=== PATIENT | female | born 1985 | race Two or more races ===

== ENCOUNTER 2024-09-13 11:26 | Emergency (ER) | payer MEDICAID, SELFPAY ==
[2024-09-13 11:44] VITALS: BP 105/72; PULSE 91; RESP 20; TEMP 37.1; O2SAT 99; BMI 30.6
--- NOTE | 2024-09-13 11:51 | EDNOTE_ITS ---
<Statement entered by Serina Rashid MD - 09/14/24 09:17> As co-signing physician, I was present and available for consult prn. I concur with the plan and care as documented by the midlevel provider. ED Dental RME/HPI General Chief complaint: Dental/Oral/Throat Stated complaint: JAW PAIN/UNABLE TO OPEN MOUTH SINCE YESTERDAY Time Seen by Provider: 09/13/24 11:30 Arrival date/time: 09/13/24 11:26 RME / HPI RME / HPI Narrative: 38-year-old female patient came in for evaluation regarding left face swelling. Patient noticed it yesterday, associated with gumline swelling on the left lower premolar, she had a crown there placed. She called her dentist however her first appointment will be on the . Patient denies any fever but complained of painful opening the mouth. Denies any difficulty swallowing. Related Data Home Medications ?Medication ?Instructions ?Recorded ?Confirmed levothyroxine 125 mcg tablet 125 mcg PO QDAY 05/20/22 05/20/22 Allergies Allergy/AdvReac Type Severity Reaction Status Date / Time No Known Allergies Allergy Verified 09/13/24 11:28 Review of Systems Review of Systems Narrative Review of Systems: Review of system reviewed and within normal limits except mentioned in HPI ED Exam Narrative Physical exam: VITAL SIGNS: Reviewed. GENERAL APPEARANCE: Alert and interactive, follows commands, no acute distress, HEAD AND FACE: Non-traumatic. Swelling noted on the left lower jaw ENT: PERRL, pink conjunctivitis, eyelid no trauma, Mucous membrane moist. Left lower premolar with crown placed, gumline swelling nonfluctuant NECK: Supple, nontender, no nuchal rigidity. CHEST: No tenderness, no crepitus, no paradoxical movement, no retractions. LUNGS: Clear, well ventilated, symmetric, no rales, no wheezing, no ronchi, no stridor, good breath sounds bilaterally. HEART: Regular rate, regular rhythm, no murmur, no gallops. ABDOMEN: Soft, positive bowel sounds, nondistended, no guarding, nontender, no rebound, no masses, RECTAL: Deferred. GENITAL: Deferred. NEUROLOGICAL: Gross motor function intact sensory function intact, Appropriate for age. MUSCULOSKELETAL: low back nontender, full range of motion. EXTREMITIES: Nontender, full range of motion. SKIN: Color pink, dry, no rash, no lacerations, no abrasions, no contusions. LYMPHATICS: Deferred. Course Quality Measures none Orders Category Date Time Status Clindamycin [Cleocin] Med 09/13/24 11:49 Discontinued 300 mg PO X1 ONE Ibuprofen Tab [Motrin Tab] Med 09/13/24 11:49 Discontinued 800 mg PO X1 ONE Vital Signs Vital signs: Vital Signs Temperature 98.7 F 09/13/24 11:44 Pulse Rate 91 09/13/24 11:44 Respiratory Rate 20 09/13/24 11:44 Blood Pressure 105/72 09/13/24 11:44 Pulse Oximetry (%) 99 09/13/24 11:44 Oxygen Delivery Method Room Air 09/13/24 11:44 Dental / Oral MDM Narrative MDM Narrative:: 38-year-old female patient came in for evaluation regarding left face swelling. Patient noticed it yesterday, associated with gumline swelling on the left lower premolar, she had a crown there placed. She called her dentist however her first appointment will be on the . Patient denies any fever but complained of painful opening the mouth. Denies any difficulty swallowing. Patient received clindamycin p.o. and Motrin in the emergency room was advised to call back her dentist may be she can be seen sooner than scheduled. Patient data External records reviewed:: None Clinical information provided by:: patient Social determinants that could affect healthcare access:: none Patient has the following chronic illnesses:: None How is presenting disease/condition affected by chronic disease/condition?: no chronic disease Evaluation data The following diagnostics were reviewed and interpreted by me:: other (specify) (None) Lab and/or radiology exams considered but not ordered:: None Interpretation Summary: None Medications / Prescriptions Medications or Prescriptions considered but not ordered:: None Medication administrations:: Medication Administration History Discontinued Medications Clindamycin HCl (Clindamycin 150 Mg Capsule) 300 mg PO X1 ONE Stop: 09/13/24 11:50 Ibuprofen (Ibuprofen Tab 400 Mg Tablet) 800 mg PO X1 ONE Stop: 09/13/24 11:50 Clindamycin Motrin Consultations Consultation(s) initiated? (list below): No Diagnosis Dental Differential Diagnosis: dental caries and other Most likely diagnosis given after review of the tests above:: Dental infection Admission Indicated Admission indicated?: not indicated Admission Request Was there a request for admission?: No Disposition Plan Disposition Plan: Discharge Discharge Attestation Discharge Attestation: The patient was given an opportunity to ask questions and understood the discharge instructions. Discharge instructions specifically effects, indications for sooner follow up or return to the emergency department, and the expected course of current diagnosis. Patient condition: Stable Discharge Plan Plan Patient Disposition: HOME (Self Care) Disposition Comment: Stable Prescriptions/Referrals Prescriptions/Med Rec: No Action levothyroxine 125 mcg Tablet 125 mcg PO QDAY Problem List Clinical Impression: Dental abscess Patient/Caregiver Discharge Instructions Education Materials: ED Abscess Antibiotic ... Additional Instructions: Thank you for the opportunity for serving you today. You are stable for discharged . You are advised to: Follow-up with your dentist next week. Return to ED for worsening of symptoms Increase oral fluids Take medication as prescribed Hydrogen peroxide combined with water [id number], gargle 3 times a day as needed Print Language: Frisian Stand Alone Forms: Cara Award Info., Patient Portal Info Letter MANAS/JENNIFER Supervising Physician MANAS/JENNIFER Supervising Physician: MD Allie
[2024-09-13] MEDS: CLINDAMYCIN 150 MG CAPSULE 300 MG PO (12:06)
[2024-09-13] MEDS: IBUPROFEN TAB 400 MG TABLET 800 MG PO (12:07)
== END 2024-09-13 12:18 | disposition home or self-care (01) ==
LOC: SERX 12:14
PROVIDERS: Emergency Provider Emergency Medicine; PCP Family Medicine
DX: K04.7 Periapical abscess without sinus (principal)
CPT/HCPCS: 99282; A9270

== ENCOUNTER 2025-04-21 17:35 | Emergency (ER) | payer MEDICAID, SELFPAY ==
[2025-04-21 17:35] VITALS: BMI 34.5
[2025-04-21 18:50] VITALS: BP 120/81; PULSE 88; RESP 18; TEMP 36.9; O2SAT 99
--- NOTE | 2025-04-21 19:03 | EDNOTE_ITS ---
ED Wound/Laceration-RME/HPI General Chief Complaint: Wound/Laceration Stated Complaint: BILATERAL LEG REDNESS AND SWELLING, ITCHY, X2D Time Seen by Provider: 04/21/25 18:26 Arrival date/time: 04/21/25 17:35 This is a case of 39-year-old female with no medical history came in in the emergency room due to multiple bug bites on both upper arm and both lower arm for 3 days patient noted that the area of the bug bites become swollen and red and become itchy and painful thus patient decided to sought consult here in the emergency room Limitations: no limitations Related Data Home Medications ?Medication ?Instructions ?Recorded ?Confirmed levothyroxine 125 mcg tablet 125 mcg PO QDAY 05/20/22 05/20/22 Previous Rx's ?Medication ?Instructions ?Recorded clindamycin HCl 300 mg capsule 300 mg PO TID #21 caps 09/13/24 ibuprofen 800 mg tablet 800 mg PO Q8H PRN pain #30 t abs 09/13/24 clindamycin HCl 300 mg capsule 300 mg PO Q6H 10 days # 40 caps 04/21/25 diphenhydramine HCl 25 mg capsule 25 mg PO TID PRN itc pj #20 caps 04/21/25 (Benadryl) prednisone 20 mg tablet See Taper PO QDAY 5 days #5 tabs 04/21/25 triamcinolone acetonide 0.1 % 1 applic topical BID 14 days #30 04/21/25 topical cream grams Allergies Allergy/AdvReac Type Severity Reaction Status Date / Time No Known Allergies Allergy Verified 09/13/24 11:28 Review of Systems Review of Systems Systems Reviewed: All systems reviewed, normal except as documented Constitutional Constitutional: Reports system reviewed and no additional complaints, except as documented, Reports as per HPI, Denies chills and Denies fever(s) Cardiovascular Cardiovascular: Reports system reviewed and no additional complaints, except as documented, Reports as per HPI, Denies chest pain, Denies dyspnea and Reports other (No leg edema) Respiratory Respiratory: Reports system reviewed and no additional complaints, except as documented, Reports as per HPI and Denies dyspnea Musculoskeletal Musculoskeletal: Reports system reviewed and no additional complaints, except as documented and Reports as per HPI Integumentary/Breasts Skin/Breast: Reports other (Bug bites) Neurologic Neurologic: Reports system reviewed and no additional complaints, except as documented and Reports as per HPI Past Medical History Past Medical History NEUROLOGIC: Negative Neurological Disorders or Seizures CARDIAC: Negative Cardiac Disorders or Congestive Heart Failure RESPIRATORY: Negative Chronic Obstructive Pulmonary Disease (COPD) or Asthma GASTROINTESTINAL: Negative Gastrointestinal Disorders or Colorectal Cancer GENITOURINARY: Negative Renal Disease or Prostate Cancer REPRODUCTIVE: Positive Gonorrhea and Previous Pregnancies; Negative Breast Cancer or Testicular Cancer MUSCULOSKELETAL: Negative Musculoskeletal Disorders or Bone Cancer ENDOCRINE: Negative Endocrine Disorders, Diabetes Mellitus Type 1 or Diabetes Mellitus Type 2 HEMATOLOGIC: Negative Blood Disorders or Sickle Cell Disease OTHER HISTORY: Positive MRSA (hx r knee) and Chicken Pox; Negative Hospitalization, Autoimmune Disease, Down Syndrome, Developmental Delay, Shingles, Falls, Blood Transfusions, Blood Transfusion Reaction, Anesthesia Reactions, Organ Transplant, Chemotherapy, Radiation Therapy, Hyperbaric Therapy, Cancer, Breast Cancer, Cervical Cancer, Colorectal Cancer, Lung Cancer, Ovarian Cancer, Prostate Cancer or Testicular Cancer Family History FAMILY HISTORY: Positive Family Gastrointestinal Problems (sister gallstones) and Family Surgery (sister gallstones); Negative Family Psychiatric Problems, Family Respiratory Disorders, Family Cardiac Disorders, Family Cancer or Family Anesthesia Reaction Surgical History SURGICAL: Positive Section (x1); Negative Organ Transplant Social History SMOKING STATUS: Never smoker ED Exam General Limitations: Present no limitations General appearance: Present alert, in no apparent distress and other (Patient is awake alert oriented not in distress nontoxic looking well-hydrated well- nourished) Head Head exam: Present atraumatic, normocephalic and normal inspection Eye Eye exam: Present normal appearance, PERRL and EOMI ENT ENT exam: Present normal exam, normal oropharynx and mucous membranes moist Neck Neck exam: Present normal inspection, full ROM and trachea midline Chest Chest inspection: Present normal inspection and symmetric chest wall rise; Absent tenderness Respiratory Respiratory exam: Present normal lung sounds bilaterally; Absent respiratory distress, wheezes, stridor, accessory muscle use or prolonged expiratory phase Cardiovascular Cardiovascular exam: Present regular rate, normal rhythm and normal heart sounds; Absent bradycardia, tachycardia, irregular rhythm, systolic murmur or diastolic murmur Abdominal Exam Abdominal exam: Present soft and normal bowel sounds Extremities Exam Extremities exam: Present normal inspection and full ROM Expanded Upper Extremity Exam Shoulder exam: Present normal inspection and full ROM; Absent tenderness or swelling Arm exam: Present normal inspection and full ROM; Absent tenderness or swelling Elbow exam: Present normal inspection and full ROM; Absent tenderness or swelling Forearm/Wrist exam: Present normal inspection, full ROM and other (Noted multiple bug bites on both forearm mild tender to touch mild swelling but no discharge no abscess no cellulitis); Absent tenderness or swelling Hand exam: Present normal inspection and full ROM; Absent tenderness or swelling Expanded Lower Extremity Exam Lower leg exam: Present full ROM and other (Noted multiple bug bite on both lower extremities mildly tender swelling around the bug bite but no leg swelling or pedal edema mild redness ROM intact neurovascular intact); Absent tenderness, swelling, abrasion, laceration, ecchymosis, deformity, crepitus, dislocation, erythema, palpable cord, Homans' sign or Achilles tendon intact Back Exam Back exam: Present normal inspection and full ROM Neurological Exam Neurological exam: Present alert, oriented X3, CN II-XII intact, normal gait and reflexes normal; Absent motor sensory deficit Psychiatric Psychiatric exam: Present normal affect and normal mood Skin Skin exam: Present warm, dry, intact, normal color and other (Note did a streak redness on the left lower extremities secondary to bug bite suggestive of cellulitis but no abscess) Course Quality Measures none Orders Category Date Time Status Clindamycin [Cleocin] Med 04/21/25 18:56 Discontinued 300 mg PO X1 ONE DiphenhydrAMINE [Benadryl] Med 04/21/25 18:56 Discontinued 50 mg PO X1 ONE Famotidine [Pepcid] Med 04/21/25 18:56 Discontinued 40 mg PO X1 ONE MethylPREDNISolone.* [SoluMEDROL Inj] Med 04/21/25 18:56 Discontinued 125 mg IM X1 ONE Vital Signs Vital signs: Vital Signs Temperature 98.5 F 04/21/25 18:50 Pulse Rate 88 04/21/25 18:50 Respiratory Rate 18 04/21/25 18:50 Blood Pressure 120/81 04/21/25 18:50 Pulse Oximetry (%) 99 04/21/25 18:50 Oxygen Delivery Method Room Air 04/21/25 18:50 Patient oxygen saturation is 90.9% in room air normal Wound / Laceration MDM Narrative MDM Narrative:: This is a case of 39-year-old female with no medical history came in in the emergency room due to multiple bug bites on both upper arm and both lower arm for 3 days patient noted that the area of the bug bites become swollen and red and become itchy and painful thus patient decided to sought consult here in the emergency room physical examination patient is awake alert oriented not in distress nontoxic looking well-hydrated well-nourished noted in multiple bug bites on both upper and both lower extremities seems inflamed redness and swelling around the bug bite tender to touch but no abscess on the left lower extremities there is a streak redness suggestive of possible cellulitis the rest of the extremities no cellulitis no abscess no pedal edema to suggest DVT no claudication at this point there is no need for any imaging or test patient was given a Benadryl Solu-Medrol and Pepcid for possible allergic reaction to the bug bite and to decrease the inflammation patient was also started on clindamycin for cellulitis patient was also discharged with clindamycin to be taken for 10 days Benadryl for itching and triamcinolone to apply on the bug bite patient will follow-up with PCP in 2 days and for any worsening symptoms return to the emergency room immediately or call 911 Patient was discharged with comfortable condition walking with stable gait. Patient verbalized no further complains explained diagnosis and answered patient question. Patient is comfortable with the proposed management plan including the need to follow up with his/her primary care physician and any specialist if applicable Discussed patient for any urgent condition or worsening sx, He/She needed to go to emergency room immediately or call 911. Patient acknowledge the responsibility to follow up as instructed and to monitor her/his symptoms. For any persistence of the symptoms for more than 3-5 days return precaution advised. Discussed the result of the test and was given printed discharge instruction Patient data External records reviewed:: [facility] previous records Clinical information provided by:: patient Social determinants that could affect healthcare access:: none Patient has the following chronic illnesses:: None How is presenting disease/condition affected by chronic disease/condition?: no chronic disease Evaluation data The following diagnostics were reviewed and interpreted by me:: other (specify) (None) Lab and/or radiology exams considered but not ordered:: None Interpretation Summary: None Medications / Prescriptions Medications or Prescriptions considered but not ordered:: Given Medication administrations:: Medication Administration History Discontinued Medications Clindamycin HCl (Clindamycin 150 Mg Capsule) 300 mg PO X1 ONE Stop: 04/21/25 18:57 Diphenhydramine HCl (Diphenhydramine Elix 25 Mg/10 Ml Udc) 50 mg PO X1 ONE Stop: 04/21/25 18:57 Famotidine (Famotidine 20 Mg Tablet) 40 mg PO X1 ONE Stop: 04/21/25 18:57 Methylprednisolone Sodium Succinate (Methylprednisolone Sod Succ 62.5 Mg/Ml 2ml Vial) 125 mg IM X1 ONE Stop: 04/21/25 18:57 Given Consultations Consultation(s) initiated? (list below): No Diagnosis Wound Differential Diagnosis: abscess and other (Cellulitis Bug bite local reaction to bug bite or allergy to bug bite) Most likely diagnosis given after review of the tests above:: Cellulitis infected bug bite Admission Indicated Admission indicated?: not indicated Explain why admission is indicated or not indicated:: Not indicated Admission Request Was there a request for admission?: No Admission Attestation Admission request attestation: Not indicated Disposition Plan Disposition Plan: Discharge Discharge Attestation Discharge Attestation: The patient and all family members were given an opportunity to ask questions and understood the discharge instructions. Discharge instructions specifically effects, indications for sooner follow up or return to the emergency department, and the expected course of current diagnosis. Patient condition: Stable Discharge Plan Plan Patient Disposition: HOME (Self Care) Patient condition on transfer: Stable Prescriptions/Referrals Prescriptions/Med Rec: New clindamycin HCl 300 mg capsule 300 mg PO Q6H 10 Days Qty: 40 0RF prednisone 20 mg tablet See Taper PO QDAY 5 Days Qty: 5 0RF Taper: Prednisone Taper 20 mg DAILY for 2 Days and 0 Hour 10 mg DAILY for 2 Days and 0 Hour 5 mg DAILY for 7 Days and 0 Hour diphenhydramine HCl [Benadryl] 25 mg capsule 25 mg PO TID PRN (Reason: itching) Qty: 20 0RF triamcinolone acetonide 0.1 % cream 1 applic topical BID 14 Days Qty: 30 0RF No Action levothyroxine 125 mcg Tablet 125 mcg PO QDAY clindamycin HCl 300 mg capsule 300 mg PO TID Qty: 21 0RF ibuprofen 800 mg tablet 800 mg PO Q8H PRN (Reason: pain) Qty: 30 0RF Problem List Clinical Impression: Bug bite with infection, Cellulitis Patient/Caregiver Discharge Instructions Education Materials: Insect Bites and Stings, ED Cellulitis, ED Sting Bite Insect Infec Additional Instructions: Follow-up with your primary care physician in 2 days for reevaluation return to the emergency room in 2 days for evaluation of the cellulitis for any worsening symptoms or any emergent concern call 911 or go to the nearest emergency room finish the course of antibiotic keep the area clean and dry do not scratch Print Language: Hungarian Stand Alone Forms: Cara Award Info., Patient Portal Info Letter PA/COUNTY AGENT Supervising Physician PA/COUNTY AGENT Supervising Physician: Dr. Tim Soto
[2025-04-21] MEDS: DiphenhydrAMINE ELIX 25 MG/10 ML UDC 50 MG PO (19:19)
[2025-04-21] MEDS: CLINDAMYCIN 150 MG CAPSULE 300 MG PO (19:19)
[2025-04-21] MEDS: MethylPREDNISolone SOD SUCC 62.5 MG/ML 2ML VIAL 125 MG IM (19:19)
[2025-04-21] MEDS: FAMOTIDINE 20 MG TABLET 40 MG PO (19:19)
== END 2025-04-21 19:32 | disposition home or self-care (01) ==
LOC: SERX 19:12
PROVIDERS: Emergency Provider Emergency Medicine
DX: L08.9 Local infection of the skin and subcutaneous tissue, unspecified (principal); S40.862A Insect bite (nonvenomous) of left upper arm, initial encounter; S40.861A Insect bite (nonvenomous) of right upper arm, initial encounter; L03.114 Cellulitis of left upper limb; L03.113 Cellulitis of right upper limb
CPT/HCPCS: 96372; 99283; J2919; A9270